=== PATIENT | female | born 1970 | race Caucasian/White ===

== ENCOUNTER → 2018-02-15 13:26 | Outpatient (CLI) | payer SELFPAY ==
[2018-02-15 17:18] LABS: Chlamydia Trachomatis by PCR Negative (Negative); Neisserai gonorrhoeae by PCR Negative (Negative); Probe Check PASS; Sample Adequacy Control PASS; Specimen Processing Control PASS
== END ==
PROVIDERS: Visit Provider Obstetrics & Gynecology
DX: Z11.3 Encounter for screening for infections with a predominantly sexual mode of transmission (principal)
CPT/HCPCS: 87491; 87591

== ENCOUNTER 2021-10-28 11:57 | Outpatient (CLI) | payer OTHER, SELFPAY ==
--- NOTE | 2021-10-28 12:45 | CT_ITS ---
STUDY: CT right lower extremity without contrast REASON FOR EXAM: Female, 50 years old. VARUS DEFORMITY,NOT ELSEWHERE CLASSIFIED,R KNEE -- UNILATERAL PRIMARY OSTEOARTHRITIS RADIATION DOSAGE (If Supplied By Facility): CTDIvol = ( 18.89 ) mGy, DLP = ( 1512.87 ) mGycm. Individualized dose optimization techniques were used for this CT.? TECHNIQUE: Contiguous axial CT images from the level of the right hip to the proximal right foot were obtained. Coronal sagittal reformatted images were obtained. COMPARISON: None. FINDINGS: RIGHT HIP/PARTIALLY VISUALIZED PELVIS/RIGHT FEMUR: No acute fracture or dislocation. Mild right femoral acetabular joint osteoarthritis. Joint spaces are intact. No destructive osseous lesions. No radiopaque foreign bodies in the soft tissues. RIGHT KNEE: Severe medial compartment, moderate to severe lateral compartment and moderate to severe patellofemoral osteoarthritis. There are 2 visualized chronic well-corticated ossific fragments within the lateral tibiofemoral joint space. No acute fracture or dislocation. No significant joint effusion. No radiopaque foreign bodies in soft tissues. 2.8 x 2.1 cm oval density which appears to be an outpouching along the medial margin of a large vessel in the superficial soft tissues medial to the knee joint. This is incompletely assessed on this study. RIGHT TIBIA/FIBULA, RIGHT ANKLE, AND RIGHT PROXIMAL FOOT: No acute fracture or dislocation. Joint spaces are intact. A few tiny bone islands in the calcaneus and cuboid bone. Plantar calcaneal spurring. No destructive osseous lesions. No radiopaque foreign bodies in the soft tissues. CT/Extremity Lower without Contra IMPRESSION: 1. Right knee tricompartment osteoarthritis with 2 visualized chronic well-corticated fragmented osteophytes in the lateral tibiofemoral joint space. 2. No acute fracture or dislocation. 3. 2.8 x 2.1 cm oval density which appears to be an outpouching along the medial margin of a large vessel in the superficial soft tissues medial to the knee joint. This is incompletely assessed on this study without contrast. This likely relates to a venous varix, however a arterial pseudoaneurysm is not entirely excluded, although less likely. Further assessment with ultrasound is recommended. Electronically Signed: Bj Tran, at 13:20 EDT ,
== END 2021-10-28 23:59 | disposition home or self-care (01) ==
PROVIDERS: PCP Family Medicine; Referring Provider Orthopaedic Surgery; Visit Provider Orthopaedic Surgery
DX: Z01.818 Encounter for other preprocedural examination (principal); M21.161 Varus deformity, not elsewhere classified, right knee; M17.11 Unilateral primary osteoarthritis, right knee
CPT/HCPCS: 36415; 73700; 80048; 83036; 85027; 87081

== ENCOUNTER 2021-11-10 09:54 | Outpatient (CLI) | payer OTHER, SELFPAY ==
--- NOTE | 2021-11-10 09:56 | VDLE_ITS ---
Reason For Study: RT knee osteoarthritis RIGHT GSV is normal. CFV is compressible, spontaneous, phasic, competent and demonstrates normal augmentation. FV is compressible, spontaneous, phasic, competent and demonstrates normal augmentation. POP V is compressible, spontaneous, phasic, competent and demonstrates normal augmentation. T/P Trunk is compressible. PTV is compressible. RT PerV is compressible. Large hypoechoic structure measuring approx 2.0 1.0 cm seen in medial knee area, consistent with a VV. Procedure This is a venous duplex using B-mode, color flow and spectral Doppler. Exam performed in department. The exam was diagnostic. A preliminary report was called and/or faxed to Ang Wilkerson PA-C @ [phone] @ 10:40 am. VL/Venous Duplex US, Unilateral Interpretation Summary Deep veins of the right lower extremity are patent and compressible segmentally . There is no evidence of right lower extremity deep vein thrombosis. Valvular competence erik ears intact within the proximal deep venous system on the right . The right great saphenous vein a ppears patent and compressible segmentally. A large, compressible structure is noted medial to th e right knee, which appears to be a large varicose vein. Ordering Physician: Gen Wilkerson Referring Physician: Kendy Ulloa Performed By: Susan Curtis, JOSUE, RVT
== END 2021-11-10 23:59 | disposition home or self-care (01) ==
LOC: CVS 09:55
PROVIDERS: PCP Family Medicine; Visit Provider Physician Assistant
DX: M17.11 Unilateral primary osteoarthritis, right knee (principal)
CPT/HCPCS: 93971

== ENCOUNTER 2021-11-15 05:19 | Day surgery (SDC) | payer OTHER, SELFPAY ==
--- NOTE | 2021-10-28 12:30 | EKG12_ITS ---
Test Reason : PREOP Blood Pressure : / mmHG Vent. Rate : 063 BPM Atrial Rate : 063 BPM P-R Int : 184 ms QRS Dur : 084 ms QT Int : 424 ms P-R-T Axes : 015 -24 000 degrees QTc Int : 433 ms Normal sinus rhythm Normal ECG Confirmed by YUN SIMMONS, ISAC ([id number]), rewrite editor RANDY YOON ([id number]) on 10/29/2021 7:28:17 AM Referred By: ELIZABETH Confirmed By:INES MALCOLM MD
[2021-10-28 12:40] LABS: Hematocrit 40.2 % (37-47); Hemoglobin 13.8 g/dL (12.0-15.0); Mean Corp Hgb Conc 34.3 g/dL (32-36); Mean Corpuscular Hgb 30.5 pg (27.0-32.0); Mean Corpuscular Volume 88.7 fL (81-99); Mean Platelet Vol. 8.9 fl (6.2-12.0); Platelet Count 295 K/mm3 (150-450); Red Blood Count 4.53 M/mm3 (4.2-5.4); White Blood Count 6.7 K/mm3 (4.4-11.0)
[2021-10-28 13:04] LABS: Anion Gap 4 (5-15); BUN 13 mg/dL (7-18); Calcium,Total 8.9 mg/dL (8.5-10.1); Chloride 104 mmol/L (98-107); Creatinine, Serum 1.08 mg/dL (0.55-1.02); EST Glomerular Filtration Rate 57 mL/min (>60); Est Glom Filt Rate - Afr Amer 69 mL/min (>60); Glucose 117 mg/dL (74-106); Potassium 3.9 mmol/L (3.5-5.1); Sodium Level 138 mmol/L (136-145)
[2021-10-28 13:14] LABS: Hemoglobin A1c 5.8 % (3.8-5.6)
[2021-11-01 09:15] LABS: Magnesium 2.2 mg/dL (1.6-2.6)
[2021-11-15] VITALS (10 sets, daily range): BP systolic 92–134; BP diastolic 45–86; PULSE 63–83; RESP 16–18; TEMP 36.8–37.1; O2SAT 93–100; BMI 34.7
[2021-11-15] MEDS: Lactated Ringers 1,000 ML 15 ML IV (06:13)
[2021-11-15] MEDS: Gabapentin 600 MG Tablet PO (06:14)
[2021-11-15] MEDS: Acetaminophen 500 MG Tablet 1000 MG PO (06:14)
[2021-11-15] MEDS: Celecoxib 200 MG Capsule 400 MG PO (06:14)
[2021-11-15 06:37] LABS: Bedside Glucose 123 mg/dL (74-106)
[2021-11-15] MEDS: Cefazolin 2 GM in 0.9% Normal Saline 100 ML IV (07:29)
--- NOTE | 2021-11-15 07:30 | KNEE_PTH ---
PATIENT: PAU ROSADO LOC: [facility] – [place] U#:[id number] AGE/SX: 50/F ROOM: RE11/15/[address]: Dr. Milton Garcia DO : 1970 BED: DIS: 11/15/2021 SPEC #: [id number] RECD: 11/15/21 10:02 STATUS: KELLY RACHEL #: [id number] BENI: 11/15/21 07:[address]: Milton Garcia DEPT: SURGICAL PATHOLOGY RECD BY: Thuy Willson ENTERED: 11/15/21 12:29 SP TYPE: TOTAL KNEE OTHR DR: Dr. Dylan Romano MD Tissues: Knee, NOS Procedures: Decalcification bone/plaque Surgery Specimen Level IV HEADER OPERATION: ERAS, total knee replacement, robotic arm assist PRE-OP DIAGNOSIS: Varus deformity right knee TISSUE SUBMITTED: Bone and soft tissue of right knee MICROSCOPIC DIAGNOSIS Bone and tissue of right knee, total knee resection: Severe degenerative joint disease. Mild synovial hyperplasia. AM:eve 11/18/2021 MICROSCOPIC DESCRIPTION Slides are reviewed. GROSS DESCRIPTION Received is one container designated bone and soft tissue right knee. The specimen consists of multiple fragments of castro-yellow bone measuring in aggregate 9 x 10 x 3.5 cm. Also in the specimen container are multiple fragments of yellow-white soft tissue measuring in aggregate 9 x 8 x 2.5 cm. A number of bony fragments contain articular surfaces consistent with tibial plateau and femoral condyle and displaying prominent osteophyte formation, eburnation, and bone erosion. Construction Carpenter sections are submitted in two cassettes as follows: 1 - soft tissue, 2 - bone after decalcification. / SJ:eve 11/15/2021 TC:5 [facility]: [id number], [id number]
[2021-11-15] MEDS: TXA 1000mg in NS100 100ml (IVPB at Incision) 660 MG IV (07:44)
[2021-11-15] MEDS: TXA 1000mg in NS100 100ml (IVPB at Closure) 660 MG IV (08:56)
--- NOTE | 2021-11-15 09:01 | OP.PCM_ITS ---
Report of Operation Date of Procedure: 11/15/21 Pre-Operative Diagnosis: OA right knee Post-Operative Diagnosis: same Surgery/Procedure Performed:: Right TKR Description of Surgical Findings:: Report of Operation Date of Procedure: 11/15/2021 Preoperative Diagnosis: [Right ] knee primary osteoarthritis Postoperative Diagnosis: [Right ] knee primary osteoarthritis Operation: Robotic Assisted Knee Total Arthroplasty, [ Right ] knee Surgeon: Dr Milton Garcia DO Accountant Cost: Gen Wilkerson PA-C Anesthesia: spinal Anesthesiologist: Rainer Erazo M.D. Findings: Stable knee with good patella tracking Specimen(s): Bony cuts Complications: No intraoperative complications Estimated Blood Loss: 30 cc IV Fluids: 1000 cc crystalloid Implants Used: 1. [place] Triathlon press-fit CR size 4 femur 2. [place] Triathlon size 4 tibia 3. 32 mm patella 4. 11 mm CS polyethylene Brief History Operative Indications: [ (50 y/o female) ] with history of [ right ] knee osteoarthrosis with radiographic findings with loss of joint space, osteophyte formation and subchondral sclerosis. Failed conservative measures as mentioned in the H&P. Discussion of total knee arthroplasty as well as risk and benefits were discussed with the patient including but not limited to blood loss, DVTs, PEs, neurovascular damage, general risk of anesthesia including loss of life, and stiffness or instability were also discussed with the patient. Patient demonstrated understanding and was able to sign informed consent. Procedure: On the date of procedure, patient's [right ] lower extremity was marked in the preoperative area. The patient was then taken back to the operating room where that patient was placed on the table in the supine position. All bony prominences were identified and well-padded. Anesthesia assumed control of the C-spine and airway throughout the remainder of the procedure. A tourniquet was placed on the [ right ] upper thigh and the leg was prepped in a sterile fashion. The surgeon then scrubbed at this time. Upon reentering the room, the [right ] lower extremity was draped in a standard orthopedic fashion. A timeout was then called and everyone agreed upon the side, the site, the procedure to be performed, patient's identity and antibiotics given. Esmarch bandage was used to exsanguinate the extremity and the tourniquet was placed up to 250 mmHg with the knee in flexion. A midline skin incision was made and a sharp dissection was taken down through skin, subcutaneous tissue and fat. The standard medial parapatellar incision was made and the patella was subluxed laterally. An appropriate deep MCL release was done and the fat pad was resected. Our attention was then directed to the patella. The patella was everted and a flat resection was made. The knee was then flexed up and 2 femoral pins were placed inside the incision and 2 tibial pins were placed outside the incision in the medial tibia bicortically. Once this was completed, the 2 checkpoints in the femur and tibia were placed. Knee was then flexed up and the bony landmarks were registered. Once the was completed, the knee taken through range of motion and manually stressed allowing us to plan for an appropriate tibial cut. The robotic arm was brought into the field sterilely and checkpoint and saw were registered. Based on the patient's deformity, the tibial cut was made in [2 degrees varus ]. At this time, the tensioner was then placed in the joint and ligament tension was checked at 90 degrees and full extension. Based on the patient's ligamentous tension, appropriate adjustments were made to the operative plan and ligament releases were done. Once we were happy with our operative plan with balanced flexion and extension gaps, our attention was directed to the femur. The robot was brought into the field sterilely and registered. Posterior condylar cuts, anterior chamfer cuts and anterior cuts were appropriately made for a [size 4 ] femur. When these were completed, the saws were switched out in the distal femoral and posterior chamfer cuts were made. Protecting the soft tissue throughout this time. A [size 4 ] base plate was selected. The knee was flexed to 90 degrees and soft tissues and posterior osteophytes were removed from the joint. 40 cc of the periarticular injection was injected into the posterior medial corner of the joint. The appropriate trials were then placed on the femur and tibia. A trial polyethylene was trialed to ensure proper balancing and stability of the knee. The appropriate tibial internal rotation was then marked with a bovie. Our attention was then directed to the patella. The lug holes were drilled and the patella trial was placed. Patellar tracking was checked and deemed appro priate. Once we were happy, lug holes were drilled for the femur and trial components were removed. The tibia was subluxed and pinned into place and the keel was punched and drilled appropriately. Final components were verified and opened. The wound was copiously irrigated with normal saline. The components were impacted into place with the tibia, femur and finally the patella. The trial poly component was placed and the knee was placed in full extension. The tracking, alignment and balance were verified and a [ 11 mm CS ] polyethylene component was placed. Once the final components were placed an Irrisept lavage was performed and the wound was copiously irrigated with normal saline solution and the periarticular injection was given. the wound was closed in a layer-gomes fashion using #1 vicryl interrupted sutures for the arthrotomy, 2-0 interrupted vicryl suture for the subcuticular layer and lucía for final skin closure. A sterile compressive dressing was then placed. The patient was then awakened from anesthesia, transferred to the [facility] and transferred to the PACU for recovery. My physician television production assistant was a vital part of this case. He was important in appropriate retraction during the case, and protection of soft tissues during bony cuts. His intimate knowledge of the case and my steps aided in safe and expedient completion of the procedure as well as appropriate position of the leg during the case. He was also vital in assisting with closure under my direct supervision. Due to the complexity of this case, robotic arm was used to assist in the surgery to improve accuracy and clinical outcomes. Post-op Plan: DVT ppx; ASA 81 mg BID, thigh high compression stockings Follow up: in office in 2 weeks for wound check PT: to start POD #0 at hospital, outpatient PT should be arranged. Preoperative antibiotic: Ancef 2 grams IV Milton Garcia DO Surgeon: Milton Garcia water plant operator: Gen Wilkerson Type of Anesthesia: Spinal Anesthesiologist: Rainer Erazo Specimen's removed: bone Estimated Blood Loss (mL): 30 cc Fluids Replaced: 1000 cc crystalloid Admit VTE Documentation VTE Present on Admission: No VTE Mechan Device Prophylaxis: SCD's and Thigh High MISHA Hose VTE Pharm Prophylaxis ordered?: Yes
[2021-11-15] MEDS: Lactated Ringers 1,000 ML 999 ML IV (09:47)
[2021-11-15] MEDS: Lactated Ringers 1,000 ML 125 ML IV (09:47)
--- NOTE | 2021-11-15 10:05 | RAD_ITS ---
STUDY: X-RAY - RIGHT KNEE REASON FOR EXAM: Female, 50 years old. S/P tkr -- in PACU TECHNIQUE: 2 view(s) of the knee. COMPARISON: None. FINDINGS: Normal visualized distal femur. Linear lucencies of the tibial shaft compatible with previous hardware. Normal proximal tibiofibular articulation. Knee replacement in radiographic alignment. Surgical lucía with soft tissue swelling and air compatible with recent surgery. RAD/Knee 1 or 2 Views IMPRESSION: Radiographic alignment of recently placed knee replacement. Electronically Signed: Brien Mitchell MD ([place]) at 15:56 EDT Reading Location ID and State: 15 MT , Service support ,
[2021-11-15] MEDS: oxyCODONE 5 MG Tablet PO (13:17)
== END 2021-11-15 23:59 | disposition home or self-care (01) ==
LOC: SDC 05:20 → AC 05:20
PROVIDERS: Anesthesiology; Physician Assistant; PCP Family Medicine; Referring Provider Orthopaedic Surgery; Visit Provider Orthopaedic Surgery
PROC: 0SRC0JZ Replacement of Right Knee Joint with Synthetic Substitute, Open Approach (ICD-10-PCS; CPT 27447; principal; 2021-11-15 07:00)
DX: M17.11 Unilateral primary osteoarthritis, right knee (principal); E78.00 Pure hypercholesterolemia, unspecified; I10 Essential (primary) hypertension; M21.161 Varus deformity, not elsewhere classified, right knee; E66.9 Obesity, unspecified; Z71.3 Dietary counseling and surveillance; Z68.36 Body mass index [BMI] 36.0-36.9, adult
CPT/HCPCS: 27447; 36415; 73560; 80048; 82962; 83036; 83735; 85027; 87081; 87426; 88305; 88311; 93005; 97161; C1776; C9803; J7120

== ENCOUNTER → 2021-12-23 | Outpatient (CLI) | payer OTHER, SELFPAY ==
--- NOTE | 2021-12-23 12:50 | CT_ITS ---
EXAM: CT LEFT LOWER EXTREMITY WITHOUT INTRAVENOUS CONTRAST CLINICAL INDICATION: OSTEOARTHRITIS TECHNIQUE: Helically acquired images were obtained of the left lower extremity without intravenous contrast. 2-D reformats were performed by the technologist. This CT exam was performed using one or more of the following dose reduction techniques: automated exposure control, adjustment of the mA and/or kV according to patient size, and/or use of iterative reconstruction technique. This report was created using See[employer] report Webupo technology. COMPARISON: None. FINDINGS: BONES/JOINTS: Multiplanar CT imaging of the left hip, knee and ankle performed. Left hip: No fracture, subluxation or joint space narrowing. Soft tissues of the hip normal. Left knee: There is prominent narrowing of the medial knee joint compartment and to a lesser degree the patellofemoral joint. Subchondral cysts are noted along the articular surface of the femur and tibia. Prominent marginal osteophytosis noted as well. No acute fracture, subluxation or joint effusion. Left ankle: Defect of the medial portion of the talar dome consistent with an area of osteochondritis dissecans. No evidence of fracture, subluxation or joint effusion. A benign bone island noted within the medial malleolus. Plantar calcaneal spur noted. No soft tissue abnormality of the ankle. SOFT TISSUES: Unremarkable. No soft tissue swelling or gas. No radiopaque foreign body. CT/Extremity Lower without Contra IMPRESSION: 1. Advanced osteoarthritic changes of the left knee. 2. 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 3. Intact left hip. Electronically Signed: Jose J Palma MD at 10:03 EDT ,
== END | disposition home or self-care (01) ==
LOC: CT 12:49
PROVIDERS: PCP Family Medicine; Referring Provider Physician Assistant; Visit Provider Physician Assistant
DX: M17.12 Unilateral primary osteoarthritis, left knee (principal); M21.162 Varus deformity, not elsewhere classified, left knee
CPT/HCPCS: 36415; 73700; 80048; 83036; 85027; 87081

== ENCOUNTER 2022-01-17 09:15 | Day surgery (SDC) | payer OTHER, SELFPAY ==
[2021-12-23 13:31] LABS: Hematocrit 37.1 % (37-47); Hemoglobin 12.1 g/dL (12.0-15.0); Mean Corp Hgb Conc 32.6 g/dL (32-36); Mean Corpuscular Hgb 28.9 pg (27.0-32.0); Mean Corpuscular Volume 88.8 fL (81-99); Mean Platelet Vol. 9.1 fl (6.2-12.0); Platelet Count 238 K/mm3 (150-450); RBC Distribution Width CV 13.2 % (11.6-14.6); RBC Distribution Width SD 42.8 fl (35.1-43.9); Red Blood Count 4.18 M/mm3 (4.2-5.4); White Blood Count 8.3 K/mm3 (4.4-11.0)
[2021-12-23 13:52] LABS: Hemoglobin A1c 5.4 % (3.8-5.6)
[2021-12-23 13:54] LABS: Anion Gap 6 (5-15); BUN 17 mg/dL (7-18); BUN/Creat Ratio 17.8 RATIO (10-20); Calcium,Total 9.3 mg/dL (8.5-10.1); Chloride 106 mmol/L (98-107); Creatinine, Serum 0.96 mg/dL (0.55-1.02); EST Glomerular Filtration Rate 65 mL/min (>60); Est Glom Filt Rate - Afr Amer 79 mL/min (>60); Glucose 124 mg/dL (74-106); Potassium 3.6 mmol/L (3.5-5.1); Sodium Level 140 mmol/L (136-145)
[2022-01-03 13:28] LABS: Magnesium 2.5 mg/dL (1.6-2.6)
[2022-01-17] VITALS (8 sets, daily range): BP systolic 102–132; BP diastolic 54–82; PULSE 63–80; RESP 16; TEMP 36.6–37.3; O2SAT 98–100; BMI 33.7
[2022-01-17] MEDS: Lactated Ringers 1,000 ML 15 ML IV (09:37)
[2022-01-17] MEDS: Acetaminophen 500 MG Tablet 1000 MG PO ×2 (09:38→17:38)
[2022-01-17] MEDS: Gabapentin 600 MG Tablet PO (09:38)
[2022-01-17 09:46] LABS: Bedside Glucose 151 mg/dL (74-106)
[2022-01-17] MEDS: Cefazolin 2 GM in 0.9% Normal Saline 100 ML IV (11:54)
--- NOTE | 2022-01-17 12:00 | KNEE_PTH ---
PATIENT: PAU ROSADO LOC: [facility] – [place] U#:[id number] AGE/SX: 51/F ROOM: RE01/17/[address]: Dr. Milton Garcia DO : 1970 BED: DIS: 01/17/2022 SPEC #: [id number] RECD: 01/17/22 15:02 STATUS: KELLY RACHEL #: [id number] BENI: 01/17/22 12:[address]: Milton Garcia DEPT: SURGICAL PATHOLOGY RECD BY: Thuy Willson ENTERED: 01/18/22 07:53 SP TYPE: TOTAL KNEE OTHR DR: Dr. Dylan Romano MD Tissues: Knee, NOS Procedures: Decalcification bone/plaque Surgery Specimen Level IV HEADER OPERATION: ERAS, total knee replacement robotic arm assist PRE-OP DIAGNOSIS: Osteoarthritis left knee, varus deformity TISSUE SUBMITTED: Left knee bone and tissue MICROSCOPIC DIAGNOSIS Bone and soft tissue, left knee, total knee replacement/resection: Pieces of bone with degenerative osteoarthritic changes. SUSAN:eve 01/21/2022 MICROSCOPIC DESCRIPTION Slides are reviewed. GROSS DESCRIPTION Received is one container designated bone and soft tissue left knee. The specimen consists of multiple fragments of castro-yellow bone measuring in aggregate 9 x 9 x 4 cm. No soft tissue is identified. A number of bony fragments contain articular surfaces consistent with tibial plateau and femoral condyle and displaying prominent osteophyte formation, eburnation, and bone erosion. Industrial Automation Engineer sections are submitted in one cassette after decalcification. / SUSAN:eve 01/18/2022 TC:5 CPT: 23163, 54936
[2022-01-17] MEDS: TXA 1000mg in NS100 100ml (IVPB at Incision) 660 MG IV (12:10)
--- NOTE | 2022-01-17 13:07 | OP.PCM_ITS ---
Report of Operation Date of Procedure: 01/17/22 Pre-Operative Diagnosis: OA Left knee Post-Operative Diagnosis: same Surgery/Procedure Performed:: Left TKR Description of Surgical Findings:: Report of Operation Date of Procedure: 01/17/22 Preoperative Diagnosis: [Left ] knee primary osteoarthritis Postoperative Diagnosis: [Left ] knee primary osteoarthritis Operation: Robotic Assisted Knee Total Arthroplasty, [left ] knee Surgeon: Dr Milton Garcia DO Wood Floor Layer: Gen Wilkerson PA-C Anesthesia: spinal Anesthesiologist: Abdifatah Cuevas M.D. Findings: Stable knee with good patella tracking Specimen(s): Bony cuts Complications: No intraoperative complications Estimated Blood Loss: 20 cc IV Fluids: 1000 cc crystalloid Implants Used: 1. [place] Triathlon press-fit CR size 3 femur 2. [place] Triathlon size 4 tibia 3. 32 mm patella 4. 11 mm CS polyethylene Brief History Operative Indications: [ (51 y/o female) ] with history of [left ] knee osteoarthrosis with radiographic findings with loss of joint space, osteophyte formation and subchondral sclerosis. Failed conservative measures as mentioned in the H&P. Discussion of total knee arthroplasty as well as risk and benefits were discussed with the patient including but not limited to blood loss, DVTs, PEs, neurovascular damage, general risk of anesthesia including loss of life, and stiffness or instability were also discussed with the patient. Patient demonstrated understanding and was able to sign informed consent. Procedure: On the date of procedure, patient's [left ] lower extremity was marked in the preoperative area. The patient was then taken back to the operating room where that patient was placed on the table in the supine position. All bony prominences were identified and well-padded. Anesthesia assumed control of the C-spine and airway throughout the remainder of the procedure. A tourniquet was placed on the [left ] upper thigh and the leg was prepped in a sterile fashion. The surgeon then scrubbed at this time. Upon reentering the room, the [left ] lower extremity was draped in a standard orthopedic fashion. A timeout was then called and everyone agreed upon the side, the site, the procedure to be performed, patient's identity and antibiotics given. Esmarch bandage was used to exsanguinate the extremity and the tourniquet was placed up to 250 mmHg with the knee in flexion. A midline skin incision was made and a sharp dissection was taken down through skin, subcutaneous tissue and fat. The standard medial parapatellar incision was made and the patella was subluxed laterally. An appropriate deep MCL release was done and the fat pad was resected. Our attention was then directed to the patella. The patella was everted and a flat resection was made. The knee was then flexed up and 2 femoral pins were placed inside the incision and 2 tibial pins were placed outside the incision in the medial tibia bicortically. Once this was completed, the 2 checkpoints in the femur and tibia were placed. Knee was then flexed up and the bony landmarks were registered. Once the was completed, the knee taken through range of motion and manually stressed allowing us to plan for an appropriate tibial cut. The robotic arm was brought into the field sterilely and checkpoint and saw were registered. Based on the patient's deformity, the tibial cut was made in [neutral ]. At this time, the tensioner was then placed in the joint and ligament tension was checked at 90 degrees and full extension. Based on the patient's ligamentous tension, appropriate adjustments were made to the operative plan and ligament releases were done. Once we were happy with our operative plan with balanced flexion and extension gaps, our attention was directed to the femur. The robot was brought into the field sterilely and registered. Posterior condylar cuts, anterior chamfer cuts and anterior cuts were appropriately made for a [size 3 ] femur. When these were completed, the saws were switched out in the distal femoral and posterior chamfer cuts were made. Protecting the soft tissue throughout this time. A [size 4 ] base plate was selected. The knee was flexed to 90 degrees and soft tissues and posterior osteophytes were removed from the joint. 40 cc of the periarticular injection was injected into the posterior medial corner of the joint. The appropriate trials were then placed on the femur and tibia. A trial polyethylene was trialed to ensure proper balancing and stability of the knee. The appropriate tibial internal rotation was then marked with a bovie. Our attention was then directed to the patella. The lug holes were drilled and the patella trial was placed. Patellar tracking was checked and deemed appropriate. Once we were happy, lug holes were drilled for the femur and trial components were removed. The tibia was subluxed and pinned into place and the keel was punched and drilled appropriately. Final components were verified and opened. The wound was copiously irrigated with normal saline. The components were impacted into place with the tibia, femur and finally the patella. The trial poly component was placed and the knee was placed in full extension. The tracking, alignment and balance were verified and a [11 mm CS ] polyethylene component was placed. Once the final components were placed an Irrisept lavage was performed and the wound was copiously irrigated with normal saline solution and the periarticular injection was given. the wound was closed in a layer-gomes fashion using #1 vicryl interrupted sutures for the arthrotomy, 2-0 interrupted vicryl suture for the subcuticular layer and lucía for final skin closure. A sterile compressive dressing was then placed. The patient was then awakened from anesthesia, transferred to the [place] and transferred to the PACU for recovery. My physician educational program assistant was a vital part of this case. He was important in appropriate retraction during the case, and protection of soft tissues during bony cuts. His intimate knowledge of the case and my steps aided in safe and expedient completion of the procedure as well as appropriate position of the leg during the case. He was also vital in assisting with closure under my direct supervision. Due to the complexity of this case, robotic arm was used to assist in the surgery to improve accuracy and clinical outcomes. Post-op Plan: DVT ppx; ASA 81 mg BID, thigh high compression stockings Follow up: in office in 2 weeks for wound check PT: to start POD #0 at hospital, outpatient PT should be arranged. Preoperative antibiotic: Ancef 2 grams IV Milton Garcia DO Surgeon: Milton Garcia plant maintenance technician: Gen Wilkerson Type of Anesthesia: Spinal Anesthesiologist: Abdifatah Cuevas Estimated Blood Loss (mL): 20 cc Fluids Replaced: 1000 cc crystalloid Admit VTE Documentation VTE Present on Admission: No VTE Mechan Device Prophylaxis: SCD's and Thigh High MISHA Hose VTE Pharm Prophylaxis ordered?: Yes
[2022-01-17] MEDS: TXA 1000mg in NS100 100ml (IVPB at Closure) 660 MG IV (13:12)
[2022-01-17] MEDS: Lactated Ringers 1,000 ML 999 ML IV (13:45)
--- NOTE | 2022-01-17 14:00 | RAD_ITS ---
STUDY: XR Knee 1 or 2 Views 01/17/2022 5:05 PM REASON FOR EXAM: Female, 51 years old. post-op TKR -- in PACU TECHNIQUE: XR Knee 1 or 2 Views LEFT COMPARISON: None FINDINGS: There is no fracture or dislocation. There is anatomic alignment. Total knee arthroplasty. Soft tissue edema. Skin lucía are seen along the anterior midline aspect of the knee. There is an air-fluid level seen in the suprapatellar region. Joint space is preserved. Subcutaneous air is noted. RAD/Knee 1 or 2 Views IMPRESSION: Successful total knee arthroplasty. Electronically Signed: Sky Montano MD at 17:06 EDT ,
[2022-01-17] MEDS: oxyCODONE 5 MG Tablet PO (15:00)
== END 2022-01-17 18:30 | disposition home or self-care (01) ==
LOC: SDC 09:15 → AC 09:15
PROVIDERS: Anesthesiology; PCP Family Medicine; Referring Provider Orthopaedic Surgery; Visit Provider Orthopaedic Surgery
PROC: 0SRD0JZ Replacement of Left Knee Joint with Synthetic Substitute, Open Approach (ICD-10-PCS; CPT 27447; principal; 2022-01-17 11:30)
DX: M17.12 Unilateral primary osteoarthritis, left knee (principal); E78.00 Pure hypercholesterolemia, unspecified; I10 Essential (primary) hypertension; Z79.899 Other long term (current) drug therapy; R06.02 Shortness of breath; F41.9 Anxiety disorder, unspecified; M21.162 Varus deformity, not elsewhere classified, left knee; E66.9 Obesity, unspecified; Z68.34 Body mass index [BMI] 34.0-34.9, adult
CPT/HCPCS: 27447; S2900; 01402; 64447; 36415; 73560; 80048; 82962; 83036; 83735; 85027; 87081; 88305; 88311; 97162; C1776; J7120; J2405; J3475

== ENCOUNTER → 2022-05-20 | Outpatient (CLI) | payer OTHER, SELFPAY ==
[2022-05-20 11:24] LABS: AST(SGOT) 12 U/L (15-37); Alanine Aminotransfer ALT/SGPT 21 U/L (13-56); Albumin, Serum 3.7 g/dL (3.2-5.0); Alkaline Phosphatase 126 U/L (45-117); Anion Gap 6 (5-15); BUN 14 mg/dL (7-18); Calcium,Total 9.4 mg/dL (8.5-10.1); Chloride 108 mmol/L (98-107); Cholesterol 209 mg/dL (200); Creatinine, Serum 0.93 mg/dL (0.55-1.02); EST Glomerular Filtration Rate 67 mL/min (>60); Est Glom Filt Rate - Afr Amer 81 mL/min (>60); Globulin 3.7 g/dL (2.2-4.2); Glucose 103 mg/dL (74-106); High Density Lipoprotein 33 mg/dL; Potassium 3.6 mmol/L (3.5-5.1); Protein, Total 7.4 g/dL (6.4-8.2); Sodium Level 143 mmol/L (136-145); Triglycerides 390 mg/dL; Very Low Density Lipoprotein 78 mg/dL (5-40)
== END | disposition home or self-care (01) ==
LOC: LAB 09:42
PROVIDERS: PCP Family Medicine; Referring Provider Family Medicine; Visit Provider Family Medicine
DX: E78.2 Mixed hyperlipidemia (principal); I10 Essential (primary) hypertension
CPT/HCPCS: 36415; 80053; 80061

== ENCOUNTER → 2022-06-01 | Outpatient (CLI) | payer OTHER, SELFPAY ==
--- NOTE | 2022-06-01 12:25 | BI_ITS ---
MAMMOGRAPHY - BILATERAL SCREENING 3-D TOMOSYNTHESIS REASON FOR EXAM: Female, 51 years old. Routine screening PERTINENT HISTORY: Grandmother with breast cancer.. TECHNIQUE: 2-D mammograms and 3-D Tomosynthesis of the breast (s) were performed. CAD was performed. COMPARISON: 12/12/2013 FINDINGS: The breast composition is composed of scattered fibroglandular density. Scattered benign calcifications are seen. No dense spiculated masses or suspicious microcalcifications are identified. No architectural distortion is identified. There is no skin thickening or retraction. There has been no significant change since the prior study. BI/SCRN MAMM (CAD)W/RIYA BILAT IMPRESSION: No mammographic signs of malignancy. Routine yearly mammograms recommended. ASSESSMENT CATEGORY: BIRADS Category 2: Benign. A letter regarding these results will be sent to the patient by the facility within 30 days. FOLLOW UP RECOMMENDATION: Yearly follow up mammogram recommended. (A) Approximately 10% of breast cancers are not detected by mammography. A normal mammogram should not delay biopsy of a clinically suspicious abnormality. Electronically Signed: Lencho Blue MD at 13:21 EDT ,
== END | disposition home or self-care (01) ==
LOC: OPBI 12:23
PROVIDERS: PCP Family Medicine; Visit Provider Family Medicine
DX: Z12.31 Encounter for screening mammogram for malignant neoplasm of breast (principal); Z80.3 Family history of malignant neoplasm of breast
CPT/HCPCS: 77063; 77067

== ENCOUNTER → 2022-08-12 | Outpatient (CLI) | payer OTHER, SELFPAY ==
[2022-08-12 10:48] LABS: Cholesterol 144 mg/dL (200); High Density Lipoprotein 35 mg/dL; Triglycerides 190 mg/dL; Very Low Density Lipoprotein 38 mg/dL (5-40)
== END | disposition home or self-care (01) ==
LOC: LAB 09:23
PROVIDERS: PCP Family Medicine; Visit Provider Family Medicine
DX: E78.2 Mixed hyperlipidemia (principal)
CPT/HCPCS: 36415; 80061

== ENCOUNTER → 2023-05-09 | Outpatient (CLI) | payer OTHER, SELFPAY ==
[2023-05-09 10:37] LABS: AST(SGOT) 13 U/L (15-37); Alanine Aminotransfer ALT/SGPT 19 U/L (13-56); Albumin, Serum 3.6 g/dL (3.2-5.0); Alkaline Phosphatase 116 U/L (45-117); Anion Gap 4 (5-15); BUN 18 mg/dL (7-18); BUN/Creat Ratio 19.9 RATIO (10-20); Calcium,Total 8.9 mg/dL (8.5-10.1); Chloride 107 mmol/L (98-107); Cholesterol 155 mg/dL (200); EST Glomerular Filtration Rate 69 mL/min (>60); Est Glom Filt Rate - Afr Amer 84 mL/min (>60); Globulin 3.5 g/dL (2.2-4.2); Glucose 108 mg/dL (74-106); High Density Lipoprotein 31 mg/dL; Potassium 4.2 mmol/L (3.5-5.1); Protein, Total 7.1 g/dL (6.4-8.2); Sodium Level 139 mmol/L (136-145); Triglycerides 407 mg/dL
== END | disposition home or self-care (01) ==
PROVIDERS: PCP Family Medicine; Visit Provider Family Medicine
DX: E78.2 Mixed hyperlipidemia (principal); I10 Essential (primary) hypertension
CPT/HCPCS: 36415; 80053; 80061

== ENCOUNTER → 2023-05-30 | Outpatient (CLI) | payer OTHER, SELFPAY ==
[2023-05-30 11:22] LABS: Cholesterol 159 mg/dL (200); High Density Lipoprotein 38 mg/dL; Triglycerides 232 mg/dL; Very Low Density Lipoprotein 46 mg/dL (5-40)
[2023-05-30 11:51] LABS: Hemoglobin A1c 5.4 % (3.8-5.6)
== END | disposition home or self-care (01) ==
LOC: LAB 09:29
PROVIDERS: PCP Family Medicine; Referring Provider Family Medicine; Visit Provider Family Medicine
DX: E78.2 Mixed hyperlipidemia (principal); R73.9 Hyperglycemia, unspecified
CPT/HCPCS: 36415; 80061; 83036

== ENCOUNTER → 2024-09-20 | Outpatient (CLI) | payer OTHER, SELFPAY ==
--- NOTE | 2024-09-20 06:50 | CT_ITS ---
PROCEDURE: LIMITED CHEST CT CARDIAC ONLY REASON FOR EXAM: Evaluation of the coronary arteries. Family history of coronary artery disease. TECHNIQUE: Chest CT without contrast. COMPARISON: None. FINDINGS: Hardware: None. Lymph nodes: No mediastinal hilar or axillary lymphadenopathy. Heart and Vasculature: Normal heart size. No pericardial effusion. Atherosclerotic calcifications of the thoracic aorta. Thoracic aorta and pulmonary arteries have normal contours; noncontrast technique limits evaluation. Coronary Artery Calcifications: Present Lungs and Airways: The lungs are normally expanded and clear. Pleura: No pleural effusion. No pneumothorax. Upper Abdomen: Visualized portions of the upper abdominal viscera are unremarkable. Bones: Bone windows are unremarkable. CT/Limited Chest CT Cardiac Only IMPRESSION: Coronary artery calcification. One or more dose reduction techniques were used (e.g., Automated exposure contr ol, adjustment of the mA and/or kV according to patient size, use of iterative reconstruction technique). Reading Location: [id number]
--- NOTE | 2024-09-20 10:54 | CA.SCORE ---
Calcium Scoring Date of Study:: 09/20/24 Indications Indications: Abnormal stress test Coronary Calcium Scoring: High-resolution Computed Tomographic imaging of the chest was performed on [09/20/2024], with particular attention paid to the coronary arteries. Images from the examination were analyzed for the presence and extent of coronary artery calcification , using coronary calcium quantification software. The patient tolerated the procedure well and there were no complications. The results of the coronary calcification analysis are provided below. Findings Coronary Artery Left Main (LM): 0 Left Anterior Descending (LAD): 41 Left Circumflex (LCX): 0 Right Coronary Artery (RCA): 486 Total Agatston Score: 527 Percentile Rankinth percentile Calcium Scoring Interpretation: Different methods to categorize the overall amount of coronary plaque. Overall amount CAC SIS Visual of coronary plaque P1 Mild -100 <2 1-2 vessels with mild amount of plaque P2 Moderate 101-300 3-4 1-2 vessels with moderate amount, 3 vessels with mild amount of plaque P3 Severe 301-999 5-7 3 vessels with moderate amount, 1 vessel with severe amount of plaque P4 Extensive >1000 >8 2-3 vessels with severe amount of plaque Conclusion: Two-vessel disease with one-vessel having a severe amount of plaque present.
== END | disposition home or self-care (01) ==
PROVIDERS: PCP Family Medicine; Referring Provider Internal Medicine Cardiovascular Disease; Visit Provider Internal Medicine Cardiovascular Disease
DX: E78.00 Pure hypercholesterolemia, unspecified (principal); Z82.49 Family history of ischemic heart disease and other diseases of the circulatory system; R94.39 Abnormal result of other cardiovascular function study
CPT/HCPCS: 75571; 76380

== ENCOUNTER 2024-09-30 06:34 | Day surgery (SDC) | payer OTHER, SELFPAY ==
--- NOTE | 2024-09-24 17:47 | PCM.HP.BLA ---
History and Physical Date of Admission: 09/30/24 Pleasant 53-year-old lady with no previous cardiac history who presents for an evaluation of her cardiac condition. She says that over the last few months she has had chest discomfort described as a tightness associated with some palpitations as well as an elevated blood pressure. She was scheduled for and underwent a stress echocardiogram but this was terminated prematurely because her blood pressure went to 241/116 at 9.3 METS. She had no chest pain then however there were questionable ST changes noted. The resting echocardiogram demonstrated ejection fraction of 50 to 55%. She has had no neck arm or jaw discomfort suggest angina since then she has been compliant with her medications she has also taken her blood pressures at home and they have been elevated in the stage II-III range. She has also been under some amount of stress recently. She has had no dizziness or diaphoresis no near-syncope or syncope her physical exam demonstrates clear lung [place] regular rate and rhythm and no pedal edema. Her electrocardiogram demonstrates sinus rhythm with a rate of 61 bpm. Patient underwent a coronary angiography. Calcium score was 527. She was noted to have two-vessel disease 1 with severe amount of plaque present. Because of this would like to pursue a diagnostic heart catheterization. [facility] Medical History Obesity Hyperglycemia Family history of coronary artery disease Atypical chest pain Palpitations Anxiety Alcohol use Arthritis High cholesterol Non-smoker Shortness of breath on exertion History of pain when walking Hypertension Surgical History Hx of total knee arthroplasty History of appendectomy Hx of tonsillectomy Hx of hysterectomy Hx laparoscopic cholecystectomy Family History Other Diabetes Heart disease Hypertension Social History Smoking Status: Never smoker alcohol intake: current alcohol intake frequency: holidays/special occasions only substance use type: does not use ROS Const Const: Positive for headache(s) (recent; attributed to computer work and glasses per pt); Negative for fatigue, weakness or weight gain ENT ENT: Positive for headache(s) (recent; attributed to computer work and glasses per pt); Negative for dizziness, Nosebleed/epistaxis or balance problems Cardio Chest Pain: Yes (not true pain, just tightening) Palpitations: Yes feels like its: fast, thumping and other (occurs with alcohol as well) Edema: None Muscle aches with walking: None Resp Respiratory: Positive for SOB with activity (singular episode of severe SOB with exertion, resolved quickly); Negative for SOB at rest or SOB orthopnea\SOB lying down GI GI: Negative nausea, vomiting or heartburn Musc Musc: Positive for muscle aches/ myalgia (occasional; attributes to Crestor per pt) and joint pain (arthritis; chronic); Negative for muscle weakness or balance problems Neuro Neuro: Positive for lightheadedness and headache(s) (recent; attributed to computer work and glasses per pt); Negative for dizziness, near syncope, syncope or weakness Endo Endo: Negative for fatigue Psych Psych: Positive for anxiety Cardiology Exam Const Appearance: cooperative, healthy appearing, no acute distress, well developed and well groomed Nutritional Appearance: average body habitus and well nourished Orientation: alert, awake and oriented x3 Head Head: normal to inspection, normocephalic and atraumatic Ears: hearing grossly normal bilaterally and external ears normal Nose: external nose normal, nares normal, nasal mucous membranes and turbinates normal, septum normal and no nasal discharge Face and Sinus: face symmetric Mouth: oral mucosae normal, tongue normal, oropharynx normal and moist mucous membranes Teeth and gingiva: dentition normal Throat: posterior oropharynx normal, tonsils normal and uvula midline Eyes General: appearance normal, both eyes and all related structures Eyelids: eyelids normal Conjunctivae: conjunctivae normal Pupils: PERRL, normal by confrontation and accommodation normal EOM: EOM intact bilaterally Neck Neck: normal visual inspection, trachea midline and no JVD JVD: +5 Carotids: normal carotid upstroke and bounding pulses Chest Chest inspection: normal inspection of the chest, symmetric chest movement and normal respiratory effort Auscultation: Bilateral: Clear to Auscultation Cardio Palpation: normal PMI Rate: regular rate Rhythm: regular rhythm Heart sounds: S1 normal, S2 normal and normal, physiologic split S2; Negative rub, gallop or murmur GI GI: normal to inspection, soft, no hepatosplenomegaly and bowel sounds present Neuro General: patient alert, patient awake, patient oriented x3, gait normal, moves all extremities and no focal sensory deficit Skin Skin: no rashes or lesions noted Extremities Pulses: Normal: Right Femoral Pulse, Left Femoral Pulse, Right Dorsalis Pedis Pulse, Left Dorsalis Pedis Pulse, Right Posterior Tibial Pulse, Left Posterior Tibial Pulse, Right Radial Pulse and Left Radial Pulse Lower Extremity Edema: None: Bilateral Musculoskel Musculoskeletal: No joint tenderness Psych Psychological: normal affect Assessment & Plan Assessment/Plan (1) Abnormal stress test: (2) Family history of coronary artery disease: (3) Abnormal coronary angiogram: PLAN: Plan With patient's strong family history, abnormal stress test and abnormal coronary angiography, patient is agreeable to proceed with a diagnostic heart catheterization. Follow-up will be based upon findings.
[2024-09-27 07:46] VITALS: BMI 33.2
--- NOTE | 2024-09-30 06:55 | RAD_ITS ---
PROCEDURE: PA and lateral chest radiographs, two views REASON FOR EXAM: Chest pain TECHNIQUE: PA and lateral chest radiographs, two views COMPARISON: Coronary artery calcium CT 09/20/2024 FINDINGS: The cardiomediastinal silhouette is within normal limits. Thoracic aorta mildly tortuous. No pneumothorax, focal airspace consolidation, or pleural effusion. There are mild degenerative changes in the thoracic spine. RAD/Chest PA and Lateral IMPRESSION: No acute cardiopulmonary process is demonstrated. If there are persistent symp toms or clinical concern, short-term follow-up chest CT evaluation may be considered. Reading [facility]
[2024-09-30 06:56] LABS: Absolute Lymphocyte Count 2.07 X10^3/uL (0.83-4.51); Basophil# 0.04 X10^3/uL; Basophil% 0.5 % (0-1); Eosinophil# 0.24 X10^3/uL; Eosinophils% 2.8 % (0-5); Hematocrit 41.4 % (37-47); Hemoglobin 13.9 g/dL (12.0-15.0); Lymphocyte # 2.07 X10^3/ul (0.83-4.51); Lymphocyte % 23.7 % (19-41); Mean Corp Hgb Conc 33.6 g/dL (32-36); Mean Corpuscular Hgb 29.4 pg (27.0-32.0); Mean Corpuscular Volume 87.5 fL (81-99); Mean Platelet Vol. 9.1 fl (6.2-12.0); Monocyte# 0.38 X10^3/uL; Monocyte% 4.4 % (0-10); NRBC Flagged by Analyzer 0 % (0-5); Neutrophil # 5.96 X10^3/uL (2.7-7.7); Neutrophil % 68.3 % (47-70); Platelet Count 312 K/mm3 (150-450); RBC Distribution Width CV 13.2 % (11.6-14.6); RBC Distribution Width SD 42.8 fl (35.1-43.9); Red Blood Count 4.73 M/mm3 (4.2-5.4); White Blood Count 8.7 K/mm3 (4.4-11.0)
[2024-09-30 08:00] LABS: International Normalized Ratio 0.9; Prothrombin Time (Protime)PT. 12.7 SECONDS (11.7-14.9)
[2024-09-30 08:01] LABS: Partial Thromboplast Time 26.4 Seconds (24.1-36.2)
[2024-09-30 08:33] LABS: Anion Gap 6 (5-15); BUN 19 mg/dL (7-18); BUN/Creat Ratio 17.9 RATIO (10-20); Calcium,Total 9.6 mg/dL (8.5-10.1); Chloride 105 mmol/L (98-107); Creatinine, Serum 1.06 mg/dL (0.55-1.02); EST Glomerular Filtration Rate 57 mL/min (>60); Est Glom Filt Rate - Afr Amer 69 mL/min (>60); Estimated Creatinine Clearance 69.88 ml/min; Glucose 127 mg/dL (74-106); Sodium Level 138 mmol/L (136-145)
--- NOTE | 2024-09-30 09:06 | CL.D_ITS ---
Patient Name: PAU ROSADO Study Date: 09/30/2024 Performing: Stalin Nathan MD Ht: 66 inches 167.64 cm : 1970 Wt: 206 lbs 93.44 kg Age: 53 Gender: female BSA: 2.03 PROCEDURE(S) PERFORMED [id number])LHC/COR/LV CLINICAL PROFILE AND INDICATIONS Indications: Suspected CAD Heart Failure: None Stress/Imaging Date: 08/30/24 CAD Presentations: Stable angina. CONCLUSIONS Non obstructive coronary arteries Normal LV size, wall motion,and systolic function RECOMMENDATIONS Medical therapy DESCRIPTION OF PROCEDURE The patient arrived to the procedure lab. The risks and benefits of the procedure as well as a full description of our services here and current unavailability of surgical backup were fully explained to the patient and/or their significant other prior to the catheterization. The Timeout was completed, verifying the correct patient and procedure. The patient's procedural site was prepped and draped in the usual fashion. Local anesthetic was given subcutaneously to right radial region with Lidocaine 2%. Using a modified Seldinger technique, arterial access was obtained via the right radial artery, a 6Fr sheath was inserted. Right Coronary Artery selective angiography was then performed in multiple views using a 5 Fr. JR 4 catheter. Left Ventriculography was performed in CHILDRESS projection using a 5 Fr. Pigtail catheter. LV to AO pullback pressures were then recorded.The arterial sheath was pulled and a TR Band was applied for hemostasis CORONARY ANGIOGRAPHY DOMINANCE: Right Dominant LEFT HEART ASSESSMENT Left Ventricular Ejection Fraction: by LV Gram 60 % Normal LV wall motion Normal Left Ventricular systolic function LEFT MAIN: Angiographically normal LEFT ANTERIOR DESCENDING ARTERY: Angiographically normal CIRCUMFLEX ARTERY: No significant disease noted RIGHT CORONARY ARTERY: Mild calcification Mild luminal irregularities less than 30% COMPLICATIONS No Complications PROCEDURE MEDICATIONS Versed 1 mg IV Fentanyl 50 mcg IV Oxygen: 2 L/min via nasal cannula Heparin given IA 09/30/2024 08:32:35 Verapamil 2.5mg, Ntg 200mcgs, 2000 units of Heparin given IA 09/30/2024 08:32:35 SUMMARY OF HEMODYNAMIC DATA Time AIR REST ECG 07:16:36 AO 91/63 (76) SA 08:37:32 LV 111/12, 25 08:44:36 LV 113/16, 20 08:44:45 LV 110/16, 23 08:45:17 LV 120/16, 24 08:45:26 LVp 121/16, 26 08:45:30 AO 94/-11 (33) 08:45:37 Signed By Stalin Nathan MD On 09/30/2024 09:05:13 Stalin Nathan MD
== END 2024-09-30 10:25 | disposition home or self-care (01) ==
PROVIDERS: Physician Assistant Medical; PCP Family Medicine; Referring Provider Internal Medicine Cardiovascular Disease; Visit Provider Internal Medicine Cardiovascular Disease
DX: R94.39 Abnormal result of other cardiovascular function study (principal); I10 Essential (primary) hypertension; E78.00 Pure hypercholesterolemia, unspecified; Z90.710 Acquired absence of both cervix and uterus; Z90.49 Acquired absence of other specified parts of digestive tract; Z82.49 Family history of ischemic heart disease and other diseases of the circulatory system; F41.9 Anxiety disorder, unspecified; R06.02 Shortness of breath; R51.9 Headache, unspecified
CPT/HCPCS: 36415; 71046; 80048; 85025; 85610; 85730; 93458; 99152; 99153; Q9967; C1769; C1894